=== PATIENT | female | born 1940 | race Caucasian/White ===

== ENCOUNTER 2020-11-24 09:43 | Outpatient (CLI) | payer MEDICARE ==
[2020-11-24 12:03] LABS: Anion Gap 11 mmol/L (10-20); BUN (Urea Nitrogen) 11 mg/dL (9.8-20.1); Calc. Creatinine Clearance 0 mL/min (70-130); Calcium 9.7 mg/dL (7.8-10.44); Carbon Dioxide 25 mmol/L (23-31); Chloride 108 mmol/L (98-107); Glucose 104 mg/dL (83-110); Potassium 4.3 mmol/L (3.5-5.1); Sodium 140 mmol/L (136-145)
== END 2020-11-24 09:44 | disposition home or self-care (01) ==
LOC: LABBT 09:43
PROVIDERS: ATTEND Neurological Surgery
DX: Z01.818 Encounter for other preprocedural examination (principal); M48.061 Spinal stenosis, lumbar region without neurogenic claudication
CPT/HCPCS: 80048; 93005; 93010

== ENCOUNTER 2020-11-29 07:15 | Inpatient (IN) | payer MEDICARE ==
[2020-11-28 13:32] VITALS: BMI 34.3
[2020-11-29] MEDS ORDERED: EPINEPHrine 1 MG/ML AMP ONE (09:52)
[2020-11-29] MEDS ORDERED: Bupivacaine PF 0.5% 30 ML VIAL ONE (09:52)
[2020-11-29] MEDS ORDERED: Fentanyl 100 MCG/2 ML VIAL ONE ×4 (09:59→12:53)
[2020-11-29] MEDS ORDERED: Glycopyrrolate 0.2 MG/ML 5 ML SYRINGE ONE (10:15)
[2020-11-29] MEDS ORDERED: Rocuronium Bromide 10 MG/ML (10ML VIAL) ONE (10:15)
[2020-11-29] MEDS ORDERED: Lidocaine 1% PF 5 ML VIAL ONE (10:15)
[2020-11-29] MEDS ORDERED: Ondansetron PF 4 MG/2 ML Vial ONE (10:15)
[2020-11-29] MEDS ORDERED: PROPOFOL 200 MG/20 ML VIAL ONE (10:15)
[2020-11-29] MEDS ORDERED: Esmolol 100 MG/10 ML VIAL ONE (10:15)
[2020-11-29] MEDS ORDERED: Labetalol HCl 100 MG/20 ML VIAL ONE (10:15)
[2020-11-29] MEDS ORDERED: SUGAMMADEX SODIUM 200 MG/2 ML VIAL ONE (11:42)
[2020-11-29] MEDS ORDERED: Diltiazem 125 MG in Sodium Chloride 0.9% 100 ML IVPB SCH (12:45)
[2020-11-29] MEDS ORDERED: Morphine 4 MG/ML VIAL ONE (13:40)
[2020-11-29] MEDS ORDERED: Flecainide 50 MG TAB PO SCH (14:30)
[2020-11-29] MEDS ORDERED: Ondansetron ODT 4 MG TAB PO PRN (15:09)
[2020-11-29] MEDS ORDERED: Acetaminophen 325 MG TAB PO PRN (15:09)
[2020-11-29] MEDS ORDERED: Morphine 2 MG/ML VIAL ONE (15:46)
[2020-11-29] MEDS ORDERED: Morphine 2 MG/ML VIAL SLOW IVP PRN ×2 (15:58→18:15)
[2020-11-29] MEDS ORDERED: Acetaminophen/Codeine 30-300mg Tablet PO PRN ×4 (15:58→18:15)
[2020-11-29 17:40] LABS: #Monocytes 0.2 thou/uL (0.11-0.59); #Neutrophils 9.7 thou/uL (1.40-6.50); %Eosinophils 0.1 % (0.0-10.0); %Monocytes 1.7 % (0.0-10.0); %Neutrophils 89.2 % (42.0-75.0); Hemoglobin 12.2 g/dL (12.0-16.0); Mean Corpuscular HGB CONC 34.3 g/dL (32.0-36.0); Mean Corpuscular Hemoglobin 31.2 pg (27.0-31.0); Mean Corpuscular Volume 91.1 fL (78.0-98.0); Mean Platelet Volume 9.2 fL (7.4-10.4); Platelet Count 224 thou/uL (130-400); RBC Distribution Width 12.5 % (11.5-14.5); Red Blood Cell (RBC) Count 3.91 mill/uL (4.20-5.40); White Blood Cell (WBC) Count 10.9 thou/uL (4.8-10.8)
[2020-11-29 17:52] LABS: ALT (SGPT) 13 U/L (8-55); AST (SGOT) 19 U/L (5-34); Albumin 3.9 g/dL (3.4-4.8); Alkaline Phosphatase 77 U/L (40-110); Anion Gap 16 mmol/L (10-20); BUN (Urea Nitrogen) 14 mg/dL (9.8-20.1); Bilirubin, Total 0.3 mg/dL (0.2-1.2); Calc. Creatinine Clearance 57 mL/min (70-130); Calcium 8.9 mg/dL (7.8-10.44); Carbon Dioxide 23 mmol/L (23-31); Chloride 102 mmol/L (98-107); Globulin 2.7 g/dL (2.4-3.5); Glucose 147 mg/dL (83-110); Magnesium 1.6 mg/dL (1.6-2.6); Phosphorus 4.2 mg/dL (2.3-4.7); Potassium 4.2 mmol/L (3.5-5.1); Protein, Total 6.6 g/dL (5.8-8.1); Sodium 137 mmol/L (136-145)
[2020-11-29] MEDS ORDERED: tiZANidine HCl 4 MG TAB PO PRN (18:05)
[2020-11-29] MEDS ORDERED: Ondansetron PF 4 MG/2 ML Vial SLOW IVP PRN (18:05)
[2020-11-29] MEDS: CEFAZOLIN 2 GM in Premix Bag 1 BAG IVPB SCH (18:08)
[2020-11-29] MEDS: Sodium Chloride 0.9% 1,000 ML IV SCH (18:08)
[2020-11-29] MEDS ORDERED: Mag-Al 1200 mg/1200 mg/30 ML UDCUP PO PRN (18:15)
[2020-11-29] MEDS ORDERED: Morphine 4 MG/ML VIAL SLOW IVP PRN (18:15)
[2020-11-29] MEDS ORDERED: diphenhydrAMINE 25 MG CAP PO PRN (18:15)
[2020-11-29] MEDS ORDERED: Bisacodyl 10 MG SUPP PR PRN (18:15)
[2020-11-29] MEDS ORDERED: Acetaminophen 650 MG Suppository PR PRN (18:15)
[2020-11-29] MEDS ORDERED: diphenhydrAMINE 50 MG/ML VIAL IVP PRN (18:15)
[2020-11-29] MEDS: Acetaminophen 325 MG TAB PO PRN (19:08)
[2020-11-29] MEDS: tiZANidine HCl 4 MG TAB PO SCH (20:42)
[2020-11-29] MEDS: Atorvastatin Calcium 20 MG TAB PO SCH (20:42)
[2020-11-29] MEDS ORDERED: CEFAZOLIN 1 GM VIAL SLOW IVP SCH (22:00)
[2020-11-30] MEDS: CEFAZOLIN 2 GM in Premix Bag 1 BAG IVPB SCH (01:33)
[2020-11-30] MEDS: Acetaminophen 325 MG TAB PO PRN ×3 (03:54→21:18)
[2020-11-30] MEDS ORDERED: Magnesium 2 GM/50 ML 2 GM in Premix Bag 1 BAG IVPB SCH (07:15)
[2020-11-30] MEDS: traZODone HCl 50 MG TAB PO SCH (08:55)
[2020-11-30] MEDS: Oxybutynin 5 MG TAB PO SCH (08:55)
[2020-11-30] MEDS: Sodium Chloride 0.9% 1,000 ML IV SCH (08:55)
[2020-11-30] MEDS: tiZANidine HCl 4 MG TAB PO SCH ×2 (08:55→21:18)
[2020-11-30] MEDS ORDERED: Aspirin 81 mg Enteric Coated Tablet PO SCH (09:00)
[2020-11-30] MEDS ORDERED: Amlodipine 10 MG TAB PO SCH (09:00)
[2020-11-30] MEDS ORDERED: Furosemide 20 MG/2 ML VIAL SLOW IVP SCH (14:42)
[2020-11-30] MEDS: Atorvastatin Calcium 20 MG TAB PO SCH (21:18)
[2020-11-30] MEDS ORDERED: traZODone HCl 50 MG TAB PO SCH (22:30)
[2020-12-01] MEDS: Acetaminophen 325 MG TAB PO PRN ×3 (02:48→18:47)
[2020-12-01 07:43] LABS: Anion Gap 7 mmol/L (10-20); BUN (Urea Nitrogen) 13 mg/dL (9.8-20.1); Calc. Creatinine Clearance 65 mL/min (70-130); Calcium 8.4 mg/dL (7.8-10.44); Carbon Dioxide 31 mmol/L (23-31); Chloride 103 mmol/L (98-107); Glucose 103 mg/dL (83-110); Potassium 4.1 mmol/L (3.5-5.1); Sodium 137 mmol/L (136-145)
[2020-12-01] MEDS: Oxybutynin 5 MG TAB PO SCH (08:39)
[2020-12-01] MEDS: traZODone HCl 50 MG TAB PO SCH (08:39)
[2020-12-01] MEDS: Apixaban 5 MG TAB PO SCH ×2 (08:39→20:38)
[2020-12-01] MEDS: tiZANidine HCl 4 MG TAB PO SCH ×2 (08:39→20:38)
[2020-12-01] MEDS: Furosemide 40 MG/4 ML VIAL SLOW IVP SCH ×2 (08:39→15:46)
[2020-12-01] MEDS: Polyethylene Glycol 3350 17 GM Packet PO SCH (08:39)
[2020-12-01] MEDS ORDERED: Furosemide 40 MG/4 ML VIAL SLOW IVP SCH (14:00)
[2020-12-01] MEDS: Atorvastatin Calcium 20 MG TAB PO SCH (20:38)
[2020-12-02] MEDS: Furosemide 40 MG/4 ML VIAL SLOW IVP SCH (06:16)
[2020-12-02] MEDS ORDERED: Senokot S 8.6-50 MG TAB PO SCH ×2 (07:30→21:00)
[2020-12-02] MEDS: Oxybutynin 5 MG TAB PO SCH (08:02)
[2020-12-02] MEDS: Apixaban 5 MG TAB PO SCH (08:03)
[2020-12-02] MEDS: Polyethylene Glycol 3350 17 GM Packet PO SCH (08:03)
[2020-12-02] MEDS: tiZANidine HCl 4 MG TAB PO SCH (08:08)
[2020-12-02 09:33] LABS: Anion Gap 17 mmol/L (10-20); BUN (Urea Nitrogen) 11 mg/dL (9.8-20.1); Calc. Creatinine Clearance 69 mL/min (70-130); Calcium 9.2 mg/dL (7.8-10.44); Carbon Dioxide 28 mmol/L (23-31); Chloride 93 mmol/L (98-107); Glucose 124 mg/dL (83-110); Potassium 3.2 mmol/L (3.5-5.1); Sodium 135 mmol/L (136-145)
[2020-12-02] MEDS ORDERED: Potassium Chloride 20 MEQ TAB PO SCH (10:15)
[2020-12-02 11:33] VITALS: BP 122/56; TEMP 98.2
[2020-12-02] MEDS ORDERED: traZODone HCl 50 MG TAB PO SCH (20:00)
== END 2020-12-02 14:30 | disposition home health service (06) | DRG 988 ==
LOC: SDC 07:15 → 2NO 15:09
PROVIDERS: ADMIT Student in an Organized Health Care Education/Training Program; ATTEND Student in an Organized Health Care Education/Training Program
PROC: 01NB0ZZ Release Lumbar Nerve, Open Approach (ICD-10-PCS; principal; 2020-11-29)
DX: I48.0 Paroxysmal atrial fibrillation (principal); J98.11 Atelectasis; M48.062 Spinal stenosis, lumbar region with neurogenic claudication; I10 Essential (primary) hypertension; F41.9 Anxiety disorder, unspecified; M19.90 Unspecified osteoarthritis, unspecified site; E78.5 Hyperlipidemia, unspecified; Z96.641 Presence of right artificial hip joint; N32.81 Overactive bladder; F32.9 Major depressive disorder, single episode, unspecified; I95.9 Hypotension, unspecified; E87.6 Hypokalemia; E78.00 Pure hypercholesterolemia, unspecified; Z79.82 Long term (current) use of aspirin; Z79.899 Other long term (current) drug therapy; Z90.710 Acquired absence of both cervix and uterus
CPT/HCPCS: 36415; 71045; 76000; 80048; 80053; 83735; 84100; 84443; 85025; 93005; 93010; 93306; J0171; J0690; J1940; J2270; J2405; J2704; J3010; J3475; J3490; S0020